=== PATIENT | female | born 1975 | race Caucasian/White ===

== ENCOUNTER → 2020-11-26 | Outpatient (CLI) | payer OTHER | LOC: DTC 09:55 | DX: E66.09 Other obesity due to excess calories (principal); Z71.3 Dietary counseling and surveillance ==

== ENCOUNTER → 2022-02-17 | Outpatient (CLI) | payer OTHER | LOC: EXRD 10:49 | DX: R06.02 Shortness of breath (principal) | CPT/HCPCS: 71046 ==